=== PATIENT | female | born 1970 | race Caucasian/White ===

== ENCOUNTER 2022-12-05 09:53 | Day surgery (SDC) | payer OTHER ==
[2022-12-05] MEDS ORDERED: FERRIC CARBOXYMALTOSE 750 MG in SODIUM CHLORIDE 250 ML IVPB ONE (10:00)
[2022-12-05 16:33] VITALS: BP 115/63; PULSE 64; RESP 18; TEMP 97.5
== END 2022-12-05 11:25 | disposition home or self-care (01) ==
LOC: JONCNONCHE 09:53 → J7W 10:14 → JONCNONCHE 11:25
PROVIDERS: ATTEND Internal Medicine Hematology & Oncology
PROC: 3E033GC Introduction of Other Therapeutic Substance into Peripheral Vein, Percutaneous Approach (ICD-10-PCS; principal; 2022-12-05)
DX: D50.9 Iron deficiency anemia, unspecified (principal)
CPT/HCPCS: 96365; J1439

== ENCOUNTER 2022-12-12 09:44 | Day surgery (SDC) | payer OTHER ==
[2022-12-12] MEDS ORDERED: FERRIC CARBOXYMALTOSE 750 MG in SODIUM CHLORIDE 250 ML IVPB ONE (10:30)
[2022-12-12 17:31] VITALS: RESP 18; TEMP 98.4
[2022-12-12 17:52] VITALS: BP 116/61; PULSE 87
== END 2022-12-12 11:40 | disposition home or self-care (01) ==
LOC: JONCNONCHE 09:44 → J7W 09:46 → JONCNONCHE 11:40
PROVIDERS: ATTEND Internal Medicine Hematology & Oncology
PROC: 3E033GC Introduction of Other Therapeutic Substance into Peripheral Vein, Percutaneous Approach (ICD-10-PCS; principal; 2022-12-12)
DX: E61.1 Iron deficiency (principal)
CPT/HCPCS: 96365; J1439

== ENCOUNTER 2023-02-14 08:18 | Emergency (ER) | payer OTHER ==
[2023-02-14 08:57] VITALS: BP 127/53; PULSE 80; RESP 18; TEMP 98; BMI 24.1
[2023-02-14] MEDS ORDERED: DEXAMETHASONE SOD PHOSPHATE 10 MG/1 ML VIAL IM ONE (09:17)
[2023-02-14] MEDS ORDERED: KETOROLAC TROMETHAMINE 30 MG/1 ML VIAL IM ONE (09:17)
[2023-02-14] MEDS ORDERED: LIDOCAINE 5% TOPICAL PATCH TP ONE (09:18)
[2023-02-14] MEDS ORDERED: LIDOCAINE 5% TOPICAL PATCH ONE (09:22)
[2023-02-14] MEDS ORDERED: DEXAMETHASONE SOD PHOSPHATE 10 MG/1 ML VIAL ONE (09:22)
[2023-02-14] MEDS ORDERED: KETOROLAC TROMETHAMINE 30 MG/1 ML VIAL ONE (09:22)
[2023-02-14 11:00] LABS: EPI CELLS 13 /uL (0-25.1); HYALINE CASTS 0 /uL (0-3.1); URINE APPEARANCE CLEAR; URINE BACTERIA 217 /uL (0-1359); URINE BILIRUBIN NEGATIVE (NEGATIVE); URINE COLOR YELLOW; URINE GLUCOSE (UA) NEGATIVE (NEGATIVE); URINE KETONE NEGATIVE (NEGATIVE); URINE LEUK ESTERASE NEGATIVE (NEGATIVE); URINE NITRITE NEGATIVE (NEGATIVE); URINE PROTEIN 2+ (NEGATIVE); URINE RBC 482 /uL (0-23.9); URINE UROBILINOGEN 0.2 mg/dL (0.2-1.0); URINE WBC 6 /uL (0-25.8)
== END 2023-02-14 12:39 | disposition home or self-care (01) ==
LOC: JER 08:18
PROC: 3E023GC Introduction of Other Therapeutic Substance into Muscle, Percutaneous Approach (ICD-10-PCS; principal; 2023-02-14)
PROC: 3E0233Z Introduction of Anti-inflammatory into Muscle, Percutaneous Approach (ICD-10-PCS; 2023-02-14)
DX: M51.26 Other intervertebral disc displacement, lumbar region (principal); M99.73 Connective tissue and disc stenosis of intervertebral foramina of lumbar region; M79.604 Pain in right leg
CPT/HCPCS: 72131-TC; 81003; 84703; 87086; 99284-25; J1100

== ENCOUNTER 2024-04-28 07:33 | Emergency (ER) | payer OTHER ==
[2024-04-28 07:40] VITALS: BP 134/76; PULSE 94; RESP 17; TEMP 98.1; BMI 23.3
[2024-04-28 08:34] LABS: EPI CELLS 1 /uL (0-25.1); HYALINE CASTS 0 /uL (0-3.1); PH,URINE 7.5 (5.0-8.0); URINE APPEARANCE CLEAR; URINE BACTERIA 229 /uL (0-1359); URINE BILIRUBIN NEGATIVE (NEGATIVE); URINE COLOR RED; URINE GLUCOSE (UA) NEGATIVE (NEGATIVE); URINE KETONE NEGATIVE (NEGATIVE); URINE LEUK ESTERASE 3+ (NEGATIVE); URINE NITRITE NEGATIVE (NEGATIVE); URINE PROTEIN 2+ (NEGATIVE); URINE UROBILINOGEN 0.2 mg/dL (0.2-1.0); URINE WBC 301 /uL (0-25.8)
[2024-04-28] MEDS ORDERED: ACETAMINOPHEN INJECTION 100 ML ONE (08:59)
[2024-04-28] MEDS ORDERED: CEFTRIAXONE 1 GM/50 ML BAG ONE (08:59)
[2024-04-28 09:00] LABS: BASO % 0.3 % (0-2.0); HEMOGLOBIN 11.3 GM/dL (10.7-15.3); LYMPH % 7.7 % (8-40); MCH 22.2 pg (25.7-33.7); MCHC 31.3 g/dl (32.0-36.0); MEAN PLT VOLUME 6.9 fl (7.5-11.1); PLATELET COUNT 240 10^3/uL (134-434); RBC 5.07 M/mm3 (3.60-5.2); RDW 15.6 % (11.6-15.6); WHITE BLOOD COUNT 8.8 K/mm3 (4.0-10.0)
[2024-04-28] MEDS: ACETAMINOPHEN 1000 MG/100 ML BAG IVPB ONE (09:08)
[2024-04-28 09:27] LABS: POTASSIUM 4.1 mmol/L (3.5-5.1)
[2024-04-28 09:29] LABS: CALCIUM 9.2 mg/dL (8.5-10.1)
[2024-04-28 09:30] LABS: ALBUMIN 3.8 g/dl (3.4-5.0); BLOOD UREA NITROGEN 20.7 mg/dL (7-18)
[2024-04-28 09:33] LABS: CREATININE 0.7 mg/dL (0.55-1.3)
[2024-04-28 09:34] LABS: BILIRUBIN,TOTAL 0.4 mg/dL (0.2-1)
[2024-04-28 09:35] LABS: TOT PROT 7.4 g/dl (6.4-8.2)
[2024-04-28 10:28] LABS: URINE RBC 789 /uL (0-23.9)
[2024-04-28 15:09] LABS: HIV INTERPRETATION NEGATIVE (NEGATIVE)
== END 2024-04-28 11:16 | disposition home or self-care (01) ==
LOC: JER 07:33
PROC: 3E033NZ Introduction of Analgesics, Hypnotics, Sedatives into Peripheral Vein, Percutaneous Approach (ICD-10-PCS; principal; 2024-04-28)
PROC: 3E03329 Introduction of Other Anti-infective into Peripheral Vein, Percutaneous Approach (ICD-10-PCS; 2024-04-28)
DX: R31.9 Hematuria, unspecified (principal); N39.0 Urinary tract infection, site not specified; R10.30 Lower abdominal pain, unspecified
CPT/HCPCS: 36415; 80053; 81003; 85025; 86803; 87086; 87186; 87389; 99284-25; J0131